=== PATIENT | female | born 1955 | race Caucasian/White ===

== ENCOUNTER → 2024-08-26 09:29 | Outpatient (REF) | payer MEDICARE, OTHER, SELFPAY ==
[2024-08-26 13:07] LABS: ALT (SGPT) 405 U/L (0-35); AST (SGOT) 139 U/L (14-36); Albumin 3.8 g/dl (3.5-5.0); Alkaline Phosphatase 483 U/L (38-126); Amylase 44 U/L (30-110); Blood Urea Nitrogen 7 mg/dl (7-17); Calcium 10.3 mg/dl (8.4-10.2); Carbon Dioxide 31 mmol/L (22-30); Chloride 105 mmol/L (98-107); Glucose 127 mg/dl (70-99); Lipase 127 U/L (23-300); Sodium 143 mmol/L (135-145); Total Bilirubin 1.2 mg/dl (0.2-1.3); eGFR > 60.00
== END ==
LOC: HWRAD 09:29
PROVIDERS: ATTENDING PHYSICIAN Nurse Practitioner
DX: R10.13 Epigastric pain (principal)
CPT/HCPCS: 36415; 76700; 80053; 82150; 83690; 86692

== ENCOUNTER 2024-08-26 20:45 | Inpatient (IN) | payer MEDICARE, OTHER, SELFPAY ==
[2024-08-26 14:12] VITALS: BP 171/100
[2024-08-26 14:36] LABS: % Basophils 0.7 % (0-2); % Eosinophils 2.1 % (0-6); % Immature Granulocytes 0.3 % (0-0.5); % Lymphocytes 22.6 % (20.5-51.1); % Monocytes 8.4 % (1.7-9.3); % Neutrophils 65.9 % (42.2-75.2); Absolute Basophils 0.1 10^3/uL (0-0.2); Absolute Eosinophils 0.2 10^3/uL (0-0.7); Absolute Lymphocytes 1.7 10^3/uL (1.2-3.4); Absolute Monocytes 0.6 10^3/uL (0.1-0.6); Absolute Neutrophils 4.9 10^3/uL (1.4-6.5); Hematocrit 38.4 % (37.0-47.0); Hemoglobin 12.8 g/dL (12.0-16.0); Mean Corp Hgb Conc. 33.3 g/dL (33.0-37.0); Mean Corpuscular Hgb 31.3 pg (27.0-31.0); Mean Corpuscular Volume 93.9 fL (81.0-99.0); Mean Platelet Volume 10.3 fL (7.4-10.4); Nucleated Red Blood Cells % 0 %; Platelet Count 313 10^3/uL (130-400); Red Blood Cell Count 4.09 10^6/uL (4.20-5.40); Red Cell Dist. Width 12.7 % (11.5-14.5); White Blood Cell Count 7.5 10^3/uL (4.8-10.8)
--- NOTE | 2024-08-26 17:38 | ED.GENMED ---
History of Present Illness
General
Chief Complaint: Abdominal Symptoms
Source: patient
Exam Limitations: none
Time Seen by Provider: 08/26/24 17:35
Nursing documentation reviewed up to this point in time: agreed with
History of Present Illness
History of Present Illness:
69-year-old female with history of HTN, NIDDM, iron deficiency anemia, anxiety/depression, gastric bypass 2003 presents after she had an ultrasound here today showing gallstones .
Patient states for the past 4 to 5 months anywhere from 1-4 times a month she has had significant right upper quadrant pain radiating across her upper abdomen. These pains have become extreme and much worse in the past week. Went to PCP and had out
pt US today showing : 1. Cholelithiasis and choledocholithiasis. Dilation of the common bile duct up to 1.3 cm in diameter.
2. Increased hepatic echogenicity most likely representing mild fatty infiltration.
Pt has mild pain presently. Pain is worse laying flat at night.
Her stools have become pale and her urine dark. She feels bloated
Past History
Past History
ED Past Medical History: HTN, Hypercholesterolemia, IDDM and Other (Vertigo, IBS)
ED Past Surgical History: Orthopedic (Laminectomy)
Social History
Tobacco: Non-smoker
Alcohol: Occasional
Drug: None
Personal:
Living: with family
Review of Systems
Review of Systems
Allergies reviewed?: Yes
All Other Systems: ROS reviewed and negative except as documented in HPI and ROS
Constitutional: Denies fever or chills
Respiratory: Denies trouble breathing
Cardiac: Denies chest pain
ABD/GI: Reports abdominal pain, anorexia and other (pale stools); Denies nausea, vomiting or diarrhea
: Reports dark urine; Denies dysuria, frequency or difficulty voiding
Musculoskeletal: Reports no symptoms
Skin: Reports no symptoms
Neurological: Reports no symptoms
Phy Exam
Physical Exam
Physical Exam:
GENERAL: No acute distress. A&Ox3.
CONSTITUTIONAL: Afebrile.
EYES: clear, conjunctivae normal
ENMT: moist mucus membranes, Pharynx nl
RESPIRATORY: Regular respirations, nonlabored, lungs clear.
CARDIOVASCULAR: Regular rate and rhythm, no murmurs, no rubs.
GI: Soft, mild tenderness mid upper to RUQ normal BS
MUSCULOSKELETAL: Moves with ease. Well perfused.
SKIN: Warm, dry, pink
PSYCH: Normal mood and affect. Well kept, interactive and appropriate
NEUROLOGIC: Awake, alert and oriented. No focal neurological deficits
Course
Orders/Labs/Results
Orders:
Orders
08/26/24 14:22
Complete Blood Count/With Diff Urgent
08/26/24 Dinner
NPO
Allow oral meds: Yes
Allow clear liquids: No
NPO with Ice Chips: Yes
08/26/24 17:48
Comprehensive Metabolic Panel Urgent
Lipase Urgent
08/26/24 18:35
Urinalysis Reflex To Culture Urgent
Date Specimen was Collected: 08/26/24
Time Specimen was Collected: 18:32
Urine Microscopic Reflex Cult Urgent
Urine Culture Urgent
NEELAM Source: U
Specimen Description:
Date Specimen was Collected: 08/26/24
Time Specimen was Collected: 18:32
08/26/24 18:52
Piperacillin/Tazo 3.375 Gram [Zosyn] 3.375 gram in 50 ml IV NOW
08/26/24 18:55
SURGICAL CONSULT Urgent
Consulting Provider: Laron Tijerina
Was physician already notified: Yes
Reason for consult: choledocholithiasis, pain
08/26/24 19:00
0.9% Sodium Chloride 1000 ml [Nss] 1,000 ml IV 125 mls/hr
08/26/24 20:10
Admit/Transfer Patient As Directed
Co-Sign Provider:
Level of Care: Inpatient admission
Assign to:: Medical/Surgical
Physician / Group: Napoleon Rodriguez
Diagnosis: Cholelithiasis
Reason for Hospitalization: Cholelithiasis
Expected length of stay greater than two midnights?: Yes
ELOS- Estimated Length of Stay in days: 3
I certify the patient meets the requirements for IP care: Yes
PRN Pain Medication Management As Directed
May give lesser potent ordered pain med per pt: Yes
preference::
Protocol:: Medication orders for pain may be administered in a
manner that supports deferring to patient preference
when the pt is:
- Requesting an ordered lesser potent pain medication.
Least to most potent pain medications are defined
as: acetaminophen < NSAID < tramadol < opioids
(morphine, oxycodone, hydromorphone).
- Requesting a lesser dose of the same medication IF
ORDERED.
- Requesting a less intrusive route of administration
if both routes are prescribed by the provider (PO <
IV).
08/26/24 20:12
Code Status As Directed
Resuscitation Status: Full Code
08/26/24 21:41
Lactated Ringers [Lr] 1,000 ml IV 75 mls/hr
Lorazepam [Ativan] 0.5 mg PO HSPRN PRN
08/26/24 21:41
Mrcp Without MR [MR Mrcp Without] Routine
Comment:
Reason For Exam: Cholelithiasis
Recent pill cam endoscopy?: No
Accucheck [Bedside Glucose Monitoring] As Directed
Frequency: Q6H
Activity As Directed
Activity Level: Out of Bed-Early Mobility
Pneumatic Compression Sleeves As Directed
Type: Knee high
Vital Signs As Directed
Frequency: Per unit guidelines
Weight As Directed
Frequency: Once
Comment: on admission
DX Deep Vein Thrombosis Video Routine
08/27/24 02:00
Ampicillin/Sulbactam 3 G [Unasyn] 3 gm 0.9% Sodium Chloride 100 ml [Nss] 100 ml IV Q6H
08/27/24 06:00
Complete Blood Count/No Diff IN AM
Comprehensive Metabolic Panel IN AM
08/27/24 08:00
Bupropion(24Hr)Extended Releas [WELLBUTRIN XL (24 hour extended release)] 300 mg PO DAILY
08/27/24 18:00
Losartan [Cozaar] 50 mg PO QPM
METFORMIN HCl [Glucophage] 850 mg PO QPM
Abnormal Lab Results
08/26/24 08/26/24 08/26/24
14:22 17:48 18:35
RBC 4.09 L 10^6/uL
(4.20-5.40)
MCH 31.3 H pg
(27.0-31.0)
Chloride 108 H mmol/L
(98-107)
Creatinine 0.5 L mg/dL
(0.6-1.0)
Glucose 103 H mg/dl
(70-99)
AST 82 H U/L
(14-36)
ALT 335 H U/L
(0-35)
Alkaline Phosphatase 422 H U/L
(38-126)
Urine Ketones 1+ A
(Negative)
Ur Occult Blood Reflex 2+ A
(Negative)
Urine Nitrite (Reflex) Positive A
(Negative)
Leukocyte Esterase Rfl 2+ A
(Negative)
Urine RBC 3-6 A /HPF
(0-2)
Urine WBC (Reflex) 21-25 A /HPF
(0-5)
Urine Bacteria (Reflex) Many A
(Negative)
Urine Albumin (Reflex) 1+ A
(Neg - Trace)
08/26/24 14:22
08/26/24 17:48
Vital Signs
Initial and Last Documented VS:
Initial Vital Signs
Temp Pulse Resp BP Pulse Ox
98.0 F 113 16 171/100 98
08/26/24 14:12 08/26/24 14:12 08/26/24 14:12 08/26/24 14:12 08/26/24 14:12
Last Documented Vital Signs
Temp Pulse Resp BP Pulse Ox
98.4 F 90 18 159/89 98
08/26/24 21:50 08/26/24 21:50 08/26/24 21:50 08/26/24 21:50 08/26/24 21:50
MDM/Problems Addressed
Differential Diagnosis Includes:
cholelithiasis, choledocholithiasis, obstruction
MDM/Problems Addressed:
69-year-old female with history of HTN, NIDDM, iron deficiency anemia, anxiety/depression, gastric bypass 2003 presents after she had an ultrasound here today showing gallstones .
Patient states for the past 4 to 5 months anywhere from 1-4 times a month she has had significant right upper quadrant pain radiating across her upper abdomen. These pains have become extreme and much worse in the past week. Went to PCP and had out
pt US today showing : 1. Cholelithiasis and choledocholithiasis. Dilation of the common bile duct up to 1.3 cm in diameter.
2. Increased hepatic echogenicity most likely representing mild fatty infiltration.
Pt has mild pain presently. Pain is worse laying flat at night.
Her stools have become pale and her urine dark. She feels bloated
CBC unremarkable
CMP mild elevation in liver enzymes, normal bilirubin
6:45 p.m.
Consulted Gen. Surgeon Dr. Tijerina who requests MRCP (MRI) IVFs and Zosyn
Hospitalist notified of admission.
Pt informed
Chronic conditions affecting care: DM and HTN
*Critical Care Note
Total Time (30-74mins, 75-104mins- exclusive of procedures): Not Applicable
ED Attending Note
-
Portions of this chart may have been created with voice recognition software.� Occasional wrong word or��sound alike� substitutions may have occurred due to the inherent limitations of voice recognition software.
Discharge Plan
Departure
Patient Disposition: Admit
Date of Disposition: 08/26/24
Time of Disposition: 18:51
Admit to: Med/Surg
Presentation/result/management discussed w/ accepting MD/DO: Hospitalist
Condition: Fair
Discharge Problem:
Choledocholithiasis with obstruction
Interventions
Interventions:
*Risk Screen - Suicide Last Done: 08/26/24 14:12
*General Assessment Last Done: 08/26/24 14:12
*Neglect/Abuse Screening Last Done: 08/26/24 14:12
*ED- Fall Risk Assessment Last Done: 08/26/24 21:48
*ED COVID-19 Vaccine History Last Done: 08/26/24 14:12
*Nursing Disposition Last Done: 08/26/24 21:48
JY-Ozphaq-Duajdcgkck Assessment Last Done: 08/26/24 17:55
Discharge Date and Time
Discharge Date/Time: 08/26/24 21:49
[2024-08-26 18:04] LABS: ALT (SGPT) 335 U/L (0-35); AST (SGOT) 82 U/L (14-36); Albumin 3.7 g/dl (3.5-5.0); Alkaline Phosphatase 422 U/L (38-126); Blood Urea Nitrogen 14 mg/dl (7-17); Calcium 9.7 mg/dl (8.4-10.2); Carbon Dioxide 25 mmol/L (22-30); Chloride 108 mmol/L (98-107); Glucose 103 mg/dl (70-99); Lipase 173 U/L (23-300); Potassium 4.2 mmol/L (3.5-5.1); Sodium 142 mmol/L (135-145); Total Bilirubin 0.9 mg/dl (0.2-1.3); Total Protein 6.8 g/dl (6.3-8.2); eGFR > 60.00
[2024-08-26 18:26] VITALS: BP 163/83
[2024-08-26 18:45] LABS: Urine Albumin 1+ (Neg - Trace); Urine Bilirubin Negative (Negative); Urine Character Cloudy (Clear); Urine Color Yellow; Urine Glucose Negative (Negative); Urine Ketone 1+ (Negative); Urine Leukocyte 2+ (Negative); Urine Nitrite Positive (Negative); Urine Occult Blood 2+ (Negative); Urine Urobilinogen Negative (Neg - 1+)
[2024-08-26 19:13] LABS: Urine Bacteria Many (Negative); Urine White Cell 21-25 /HPF (0-5)
--- NOTE | 2024-08-26 19:13 | HPS.HSE ---
Family Physician
-
Family Physician:
Chief Complaint
-
abdominal pain
History of Present Illness
Patient is a 69-year-old female with past medical history significant for hypertension, hyperlipidemia, DM II and depression/anxiety who presented to [facility] ED for evaluation of abdominal pain. Patient reports having intermittent abdominal discomfort
for the last 4-5 months maybe having 1 episode that would resolve. In the last 2 weeks she has had a significant increase in discomfort reporting it happened twice each week and took a lot longer to resolve. She also reports recent episodes have had
included increased gas, pain is worse and rigors. She states pain was worse with eating, especially greasy foods. She sought appointment with primary care who sent her for lab work and abdominal US. They called her this afternoon and instructed her
to come to ED for evaluation and treatment.
Medical History
Past Medical History
Past Medical History: Reports Other
Additional Past Medical History:
hypertension
hyperlipidemia
DM II
depression/anxiety
Past Surgical History: Reports Other
Additional Past Surgical History:
LASIK 06/21/2014
Procedure: Laminectomy cervical 06/21/2014
ORIF Left patella 10/28/2016
right meniscus repair
right index trigger finger release 11.15.[address] Ellis
Social History
Tobacco: Non-smoker
Alcohol: Occasional
Drug: None
Personal:
Living: With Family
Employment: Retired
Family History
Family History: Other (Mother: MS; Father: dementia )
Allergies / Home Medications
Allergies reflects when Allergies were last updated in [facility].
Home Medications with original date entered in [facility]
Allergy/Medication List:
Allergies
Allergy/AdvReac Type Severity Reaction Status Date / Time
mold Allergy sinus Verified 08/26/24 14:18
headache
naproxen Allergy abdominal Verified 08/26/24 14:18
pain
Home Medications
bupropion HCl 300 mg 24 hr tablet, extended release 300 mg PO DAILY 11/14/19
lorazepam 0.5 mg tablet 0.5 mg PO HSPRN PRN ANXIETY/SLEEP 11/14/19
metformin 850 mg tablet 850 mg PO QPM 11/14/19
losartan 50 mg tablet 50 mg PO QPM 08/26/24
Review of Systems
-
History Source: Patient
Constitutional: Reports Fever and Chills
EENT: Reports No Symptoms
Respiratory: Reports No Symptoms
Cardiac: Reports No Symptoms
Abdomen/GI: Reports Abdominal Pain
: Reports Dark Urine
Musculoskeletal: Reports No Symptoms
Skin: Reports No Symptoms
Neurological: Reports No Symptoms
Endocrine: Reports No Symptoms
Hematologic/Lymphatic: Reports No Symptoms
Psych: Reports No Symptoms
Physical Exam
Vital Signs
Vital Signs
Temp Pulse Resp BP Pulse Ox
98.0 F 113 16 163/83 98
08/26/24 14:12 08/26/24 14:12 08/26/24 14:12 08/26/24 18:26 08/26/24 14:12
Physical Exam
General: Well Developed, Well Nourished, No Apparent Distress, Comfortable and Conversant
HEENT: NormoCephalic, Moist mucous membranes, Atraumatic, [place] Conjunctivae, Nose Appears Normal and Ears Appear Normal
Respiratory: Clear and Non Labored Respirations
Cardiac: S1/S2 and Regular Rhythm; No Murmur or Rub
Breast: Deferred by me
GI: Soft, Non Distended, Normal Bowel Sounds and Tender; No Organomegaly
Rectal: Deferred by Provider
Genito-urinary: Deferred by me
Musculoskeletal: No Clubbing, No Cyanosis and No Edema
Skin: Warm
Neuro: Awake, Alert, AO x 3 and Nonfocal/grossly intact
Psych: Calm and Intact Judgment/Insight
Laboratory Results
-
08/26/24 14:22
08/26/24 17:48
Laboratory Results
Total Bilirubin 0.9 mg/dl (0.2-1.3) 08/26/24 17:48
AST 82 U/L (14-36) H 08/26/24 17:48
ALT 335 U/L (0-35) H 08/26/24 17:48
Alkaline Phosphatase 422 U/L (38-126) H 08/26/24 17:48
Lipase 173 U/L (23-300) 08/26/24 17:48
Data Reviewed
-
Ultrasound: Report Reviewed by me (Abd: 1. Cholelithiasis and choledocholithiasis. Dilation of the common bile duct up to 1.3 cm in diameter. 2. Increased hepatic echogenicity most likely representing mild fatty infiltration.)
Lab Data: Labs Reviewed by me
Impression/Plan
-
IMPRESSION/PLAN:
#abdominal pain 2/2 cholelithiasis
Abd US: 1. Cholelithiasis and choledocholithiasis. Dilation of the common bile duct up to 1.3 cm in diameter.
2. Increased hepatic echogenicity most likely representing mild fatty infiltration.
- Admit to med/surg
- Consult Surgery
- Consult GI
- IVF
- IV antibiotics
- MRCP
#hypertension
- continue losartan (hold tonights dose)
#DM II
- AccuCheck q6
- hold metformin
#depression/anxiety
- continue bupropion and lorazepam PRN
#hyperlipidemia
Code status: full code
DVT prophylaxis: SCDs
[2024-08-26 19:48] VITALS: BP 165/86; BMI 25.7
[2024-08-26] MEDS: NSS 1000 IV (19:51)
[2024-08-26] MEDS: ZOSYN 50 IV (19:51)
--- NOTE | 2024-08-26 19:51 | EDRN ---
Report received, introduced myself to patient and started meds, Dr. Curtis at bedside working on admission as well.
--- NOTE | 2024-08-26 19:59 | W.PN.UPDATE ---
Update Note
Progress Note Update
Patient seen in conjunction with JEFFERY. I agree with the findings and physical. I concur with assessment and plan listed otherwise.
Briefly, this is a 69-year-old female with past medical history of fup-avbzbhf-oahkikktn diabetes, hypertension and a history of Sebastien-en-Y about 20 years ago, recently started taking Ozempic presents to the emergency department with worsening
intermittent abdominal pain. Patient reports intermittent pain for the last 5 months. She reports that she gets this episode about twice a month. She reports right upper quadrant to epigastric abdominal pain that is worse with laying down. Lasts
few hours and then resolves. Over the last 2 weeks she has had multiple episodes now associated with chills. Due to the chills she will so her physician will recommended imaging and blood test. Based on the findings on the imaging and blood test
patient was sent to the emergency department for evaluation. She reported that in the meantime she has had dark-colored urine as well as pale-colored stools. She denies alcohol use
In the emergency department she was afebrile, blood pressure was 160/80 with a pulse of 113 and she was satting 98% on room air. CBC was normal. Electrolytes BUN/creatinine were normal. She does have elevated AST ALT and alk phos. Lipase was
normal. Total bilirubin was normal. UA appears positive.
Ultrasound shows cholelithiasis and choledocholithiasis with dilation of the common bile duct up to 1.3 cm. She has some increased echogenicity of the liver consistent with fatty infiltration.
Assessment and plan
Patient with biliary colic and currently choledocholithiasis. Ultrasound is consistent with likely obstruction of the common bile duct but no obvious stone noted on that ultrasound within the common bile duct. She does have stones in the
gallbladder. The gallbladder does not appear currently inflamed. She is currently resting comfortably with pain that is well-controlled and afebrile. She does not shows overt signs of an acute infection at this time.
- Will admit to [facility]
- N.p.o. for now except for ice chips and meds
- IV fluids with LR
- Fingerstick glucose every 6 hours
- Hold metformin
- Continue losartan at bedtime tomorrow
- MRCP in am
- trend lfts
- u/a positive with chills. Unlikely cholangitis but possible, Zosyn given in ED, will continue with Unasyn for now. Urine cultures sent, blood cultures if spike. Narrow pending urine cultures
- GI consult
- surgery consulted with plan for procedure pending mrcp and GI consult
DVT PPX - lovenox sq
code status - full code
--- NOTE | 2024-08-26 21:13 | EDRN ---
No delay sent to the floor
[2024-08-26 21:50] VITALS: BP 159/89
[2024-08-26] MEDS: LR 1000 IV (21:58)
[2024-08-26] MEDS: ATIVAN 0.5 MG PO (21:59)
[2024-08-26 22:09] VITALS: BMI 24.9
[2024-08-27 00:08] LABS: Glucose - Point of Care 102 mg/dl (70-99)
[2024-08-27] MEDS: UNASYN IV ×4 (01:42→19:29)
[2024-08-27 07:14] LABS: Hematocrit 33.7 % (37.0-47.0); Hemoglobin 11.2 g/dL (12.0-16.0); Mean Corp Hgb Conc. 33.2 g/dL (33.0-37.0); Mean Corpuscular Hgb 30.9 pg (27.0-31.0); Mean Corpuscular Volume 93.1 fL (81.0-99.0); Mean Platelet Volume 10.4 fL (7.4-10.4); Platelet Count 277 10^3/uL (130-400); Red Blood Cell Count 3.62 10^6/uL (4.20-5.40); Red Cell Dist. Width 12.6 % (11.5-14.5); White Blood Cell Count 5.5 10^3/uL (4.8-10.8)
[2024-08-27 07:15] LABS: Glucose - Point of Care 93 mg/dl (70-99)
[2024-08-27 07:25] VITALS: BP 168/88
[2024-08-27 08:01] LABS: ALT (SGPT) 238 U/L (0-35); AST (SGOT) 46 U/L (14-36); Albumin 3.2 g/dl (3.5-5.0); Alkaline Phosphatase 360 U/L (38-126); Blood Urea Nitrogen 8 mg/dl (7-17); Calcium 9.2 mg/dl (8.4-10.2); Carbon Dioxide 28 mmol/L (22-30); Chloride 107 mmol/L (98-107); Estimated Creatinine Clearance 79 ml/min; Glucose 91 mg/dl (70-99); Sodium 141 mmol/L (135-145); Total Bilirubin 0.7 mg/dl (0.2-1.3); Total Protein 5.8 g/dl (6.3-8.2); eGFR > 60.00
--- NOTE | 2024-08-27 08:16 | W.PN.HOSP.TC ---
Today's Communication/Plan
-
Transfer to [facility] when bed available
Assessment / Plan
Assessment / Plan
HPI: 69yo W with h/o RNY bypass 20yrs ago, DM, HTN who was admitted for colic abd pain for past 4 months. She had labs and abd US done by PCP which showed choledocholithiasis. She was advised to come to ER for evaluation. Currently abd pain
improved to 3 out of 10. Denies odynophagia, dysphagia nausea/vomiting or jaundice. She had some remote constipation but no blood in stools. She has no other abd surgeries than RNY done by Dr Ellis at 20yrs ago. No AC or chronic nsaid use.
Assessment and plan:
#Choledocholithiasis
Appreciate GI input, she does not have cholangitis
Due to pt's RNY gastric bypass surgery, she needs to be transferred to [facility] for lap assisted ERCP with cholecystectomy
Continue IV Unasyn, okay for clear liquid diet post MRCP
She will need a disc of her MRCP at the time of transfer
Consent obtained, transfer to [facility] when bed available, accepting physician is Dr. Pollard/surgery at [facility]
#Type 2 diabetes
Hold home metformin in case she needs contrast
Sliding scale insulin, Accu-Cheks
#Essential hypertension
Continue losartan
DVT prophylaxis�subcu Lovenox
Full code
Total time spent to see the patient on the floor, examine the patient, review data and lab results, discuss treatment plan with patient, nursing staff around 50 minutes.
Physical Exam
General: No acute distress
HEENT: Normocephalic, Atraumatic, EOMI, MMM
Respiratory: Clear to Auscultation bilaterally
Cardiac: Normal S1/S2, Regular Rate and Rhythm
GI: Soft, tender at the right upper quadrant/epigastric area, normal Bowel Sounds
Extremities: No Clubbing, Cyanosis, or Edema
Neuro: Nonfocal/Grossly Intact
Anticipated Discharge: Within 24 hours
Subjective/Interval History
-
Date of Service: August 27, 2024
Patient reports abdominal pain is tolerable, improved from yesterday. No nausea, no vomiting. No chest pain, no shortness of breath. No fever.
Objective Data
-
Labs:
Laboratory Results
08/27/24
05:50
WBC 5.5
Hgb 11.2 L
Hct 33.7 L
Plt Count 277
Sodium 141
Potassium 4.0
Chloride 107
Carbon Dioxide 28
BUN 8
Creatinine 0.5 L
Glucose 91
Calcium 9.2
Total Bilirubin 0.7
AST 46 H
ALT 238 H
Alkaline Phosphatase 360 H
Vital Signs:
Vital Signs
Temp Pulse Resp BP Pulse Ox
98.0 F 85 16 168/88 97
08/27/24 07:25 08/27/24 07:25 08/27/24 07:25 08/27/24 07:25 08/27/24 07:25
I&O
08/26/24 08/27/24 08/28/24
06:59 06:59 06:59
Intake Total 120 / 120
Balance 120 / 120
[2024-08-27] MEDS: WELLBUTRIN XL (24 hour extended release) 300 MG PO (08:25)
--- NOTE | 2024-08-27 10:15 | W.DCSUMMARY ---
Discharge Summary
Discharge Data
Date of Admission: 08/26/24
Date of Discharge: 08/27/24
-
Pending Results: No
Hospital Course
Discharge diagnosis:
Choledocholithiasis
Elevated liver function test
Hepatic steatosis
Status post gastric bypass 20 years ago
Essential hypertension
Diabetes
Anxiety/depression
Consult: GI
Abd US:
1. Cholelithiasis and choledocholithiasis. Dilation of the common bile duct up to 1.3 cm in diameter.
2. Increased hepatic echogenicity most likely representing mild fatty infiltration.
Hospital course:
69-year-old female with a past medical history of diabetes, hypertension, hyperlipidemia, fatty liver, and remote gastric bypass 20 years ago presents with abdominal pain, and was found to have choledocholithiasis. Patient was treated with IV
Unasyn, and seen in conjunction with GI. Because of her Sebastien-en-Y gastric bypass surgery, she cannot have her ERCP done at [facility]. GI arranged for her transfer to [facility] so she can have lap assisted ERCP with cholecystectomy. GI
states she can have a clear liquid diet after her MRCP. She is transferred to [facility], accepting physician is Dr. Pollard with general surgery.
Disposition: Transferred to [facility]
Discharge planning: Required 4 minutes
Discharge Plan
-
Patient Disposition: Acute Care Hospital
Discharge Orders:
Discharge Patient (As Directed); Ordered 08/28/24
Ordered By: Alcides Reza
Discharge Date and Time
Discharge Date/Time: 08/28/24 04:10
Print Language: [place] CITIZ[place]
--- NOTE | 2024-08-27 10:45 | CON.GI ---
Consultation
-
Date/Time Consultation Requested: 08/26/2024
Date/Time Consultation Performed: 08/27/2024
Requesting Provider: Silvina GIL
Performing Provider: Dr Reza
Reason for Consultation: abd pain
Medical History
Chief Complaint / HPI
Chief Complaint: abd pain
History of Present Illness:
Ann-Marie is a 69yo W with h/o RNY bypass 20yrs ago, DM, HTN who was admitted for colic abd pain for past 4 months. She had labs and abd US done by PCP which showed choledocholithiasis. She was advised to come to ER for evaluation. Currently abd pain
improved to 3 out of 10. Denies odynophagia, dysphagia nausea/vomiting or jaundice. She had some remote constipation but no blood in stools. She has no other abd surgeries than RNY done by Dr Ellis at 20yrs ago. No AC or chronic nsaid use
Past Medical History
Past Medical History: Other (DM, HTN, HL, depression/anxiety)
Past Surgical History: Other (ORIF laminectomy cervical 2014, ORIF L patella 10/2016 R meniscus tear, R trigger finger release 10/2019, RNY gastric bypass)
Social History
Tobacco: Non-Smoker
Alcohol: Occasional
Drug: None
Personal:
Living: With Family
Employment: Retired
Family History
Family History: Other (Mother MS Father dementia)
Allergies / Home Medications
Allergy/AdvReac Type Severity Reaction Status Date / Time
erythromycin base Allergy ABDOMINAL Verified 08/26/24 21:43
PAIN
mold Allergy sinus Verified 08/26/24 14:18
headache
naproxen Allergy abdominal Verified 08/26/24 14:18
pain
�Medication �Instructions �Recorded
bupropion HCl 300 mg 24 hr tablet, 300 mg PO DAILY 11/14/19
extended release
lorazepam 0.5 mg tablet 0.5 mg PO HSPRN PRN ANXIETY/SLEEP 11/14/19
metformin 850 mg tablet 850 mg PO QPM 11/14/19
losartan 50 mg tablet 50 mg PO QPM 08/26/24
Review of Systems
-
All other systems: A 12 pt ROS was Negative except as stated above in HPI
Vital Signs
Temp Pulse Resp BP Pulse Ox
98.0 F 85 16 168/88 97
08/27/24 07:25 08/27/24 07:25 08/27/24 07:25 08/27/24 07:25 08/27/24 07:25
Physical Exam
Exam
GEN: No acute distress, conversant, pleasant appears younger than stated age
HEENT: anicteric, extraocular movements intact, clear oropharynx without exudates
CV: normal S1/S2, no murmur, rub or gallop
RESP: clear to auscultation bilaterally
GI: soft, non-distended, RLQ mildly tender to palpation, normal active bowel sounds, no hepatosplenomegaly
EXT: warm, well perfused, trace edema bilaterally
NEURO: AAOx3, non-focal
Results
WBC 5.5 10^3/uL (4.8-10.8) 08/27/24 05:50
Hgb 11.2 g/dL (12.0-16.0) L 08/27/24 05:50
Hct 33.7 % (37.0-47.0) L 08/27/24 05:50
MCV 93.1 fL (81.0-99.0) 08/27/24 05:50
Plt Count 277 10^3/uL (130-400) 08/27/24 05:50
Absolute Neuts (auto) 4.9 10^3/uL (1.4-6.5) 08/26/24 14:22
Sodium 141 mmol/L (135-145) 08/27/24 05:50
Potassium 4.0 mmol/L (3.5-5.1) 08/27/24 05:50
Chloride 107 mmol/L (98-107) 08/27/24 05:50
Carbon Dioxide 28 mmol/L (22-30) 08/27/24 05:50
BUN 8 mg/dl (7-17) 08/27/24 05:50
Creatinine 0.5 mg/dL (0.6-1.0) L 08/27/24 05:50
Calcium 9.2 mg/dl (8.4-10.2) 08/27/24 05:50
Total Bilirubin 0.7 mg/dl (0.2-1.3) 08/27/24 05:50
AST 46 U/L (14-36) H 08/27/24 05:50
ALT 238 U/L (0-35) H 08/27/24 05:50
Alkaline Phosphatase 360 U/L (38-126) H 08/27/24 05:50
Lipase 173 U/L (23-300) 08/26/24 17:48
Diagnostic Image Results:
Abd US 08/26/2024 1. Cholelithiasis and choledocholithiasis. Dilation of the common bile duct up to 1.3 cm in diameter.
2. Increased hepatic echogenicity most likely representing mild fatty infiltration.
Assessment / Plan
-
Ann-Marie is a 69yo W with h/o DM, HTN and HL who was admitted for elevated LFTs and choledocholithiasis seen on abd US. She does not have cholangitis. Given RNY gastric bypass surgery cannot have ERCP done at . Case d/w surgery and GI at [facility] she
would benefit from lap assisted ERCP with cholecystectomy
Impression
- Choledocholithiasis
- Elevated LFTs
- Fatty liver
- s/p RNY bypass 20yrs ago
- HTN
- DM
- Anxiety
- Depression
Recommendations
- Case d/w Dr Bell GI at [facility] and Dr Pollard surgery at [facility]. Accepted for transfer as emergent
- Ok to get MRI for anatomy mapping. Please send copy of study at time of transfer
- C/w unasyn and IVF
- Pain management
- Above d/w pt and hospitalist
- CLD post MRI and then can adv as tolerates depending on when [facility] bed is available.
- Trend LFTs
GI will monitor peripherally please call back for questions
78mins of time spent today coordinating her care and speaking with multiple physicians (Dr Mcmahon, Atul Hardin and Janes) at [place] to facilitate transfer
Data Reviewed
-
Ultrasound: Report Reviewed by me
-
-
Thank you for consultation and allowing me to participate in the patient's care. Please call the convenience [facility] tech GI physician during the after hours with any questions or concerns.
--- NOTE | 2024-08-27 11:17 | CM ---
CM met with pt bedside
Pt resides alone in a 1st floor apt with 1 JAG
Her SO/Louie and best friend live in close to her
Pt is indep with her ADLs, has working BGM at home
No financial insecurities
PCP- Ann-Marie Allen
Rx- [facility]
SO/Louie is her emergency contact [phone] Reza- plan to transfer to [facility]
Due to hx with RNY gastric bypass, plan for lap ERCP with cholecystectomy
Discharge Disposition- transfer to [place]/[facility]
[2024-08-27 12:37] LABS: Glucose - Point of Care 126 mg/dl (70-99)
[2024-08-27] MEDS: LR 1000 IV (13:39)
[2024-08-27 16:00] VITALS: BP 159/79
[2024-08-27 17:06] LABS: Glucose - Point of Care 92 mg/dl (70-99)
[2024-08-27] MEDS: COZAAR 50 MG PO (17:07)
[2024-08-27 19:31] VITALS: BP 113/83
[2024-08-27 21:28] LABS: Glucose - Point of Care 94 mg/dl (70-99)
--- NOTE | 2024-08-27 22:25 | PTCARENOTE ---
Report given to receiving RN at [facility], awaiting transport as this time.
[2024-08-27 23:06] VITALS: BP 150/87
[2024-08-27] MEDS: ATIVAN 0.5 MG PO (23:24)
[2024-08-28] MEDS: UNASYN IV (02:24)
[2024-08-28] MEDS: LR 1000 IV (03:12)
[2024-08-28 03:52] VITALS: BP 146/79
[2024-08-29 19:56] LABS: Hepatitis C Antibody Negative (Negative)
== END 2024-08-28 04:10 | disposition short-term general hospital (02) | DRG 446 ==
LOC: 2 SOUTH 20:45
PROVIDERS: Emergency Medicine; Nurse Practitioner Family; Registered Nurse; ADMITTING PHYSICIAN Internal Medicine; ATTENDING PHYSICIAN Family Medicine; CONSULT PHYSICIAN Internal Medicine Gastroenterology; EMERGENCY PHYSICIAN Student in an Organized Health Care Education/Training Program; FAMILY PHYSICIAN Internal Medicine
DX: K80.50 Calculus of bile duct without cholangitis or cholecystitis without obstruction (principal); I10 Essential (primary) hypertension; F41.9 Anxiety disorder, unspecified; F32.A Depression, unspecified; E78.00 Pure hypercholesterolemia, unspecified; E11.9 Type 2 diabetes mellitus without complications; K58.9 Irritable bowel syndrome, unspecified; K76.0 Fatty (change of) liver, not elsewhere classified; Z98.84 Bariatric surgery status; Z79.84 Long term (current) use of oral hypoglycemic drugs; Z79.899 Other long term (current) drug therapy; Z88.8 Allergy status to other drugs, medicaments and biological substances; Z79.85 Long-term (current) use of injectable non-insulin antidiabetic drugs
CPT/HCPCS: 36415; 76700; 80053; 81003; 81015; 82150; 82962; 83690; 85025; 85027; 86692; 86803; 87077; 87086; 87186; 96365; 99284